=== PATIENT | male | born 1965 | race Caucasian/White ===

== ENCOUNTER 2017-04-09 11:58 | Inpatient (IN) ==
--- NOTE | 2017-04-09 12:27 | Emergency Department Note ---
Disposition Clinical Impression: Cerebrovascular accident Qualifiers: CVA mechanism: unspecified Qualified Code(s): I63.9 - Cerebral infarction, unspecified Disposition: Admitted As Inpatient Condition: Fair Referrals: Alonso Duke MD [Primary Care Provider] - Forms: ED Satisfaction Letter Time of Disposition: 15:21 Neuro HPI - General Chief Complaint: ED Neuro Symptoms/Deficit Stated Complaint: Right leg weakness Time Seen by Provider: 04/09/17 12:20 Source: patient, family Mode of arrival: wheelchair Limitations: no limitations Nursing Notes Reviewed: Yes Vital Signs Reviewed: Yes - History of Present Illness HPI Narrative: 52-year-old male who states he developed right leg weakness says he just could not use it like he wanted to last p.m. at about 12:30. He denies other symptoms. Onset of Symptoms Date: 04/09/17 Onset of Symptoms Time: 00:30 Symptom Onset Unknown: No Timing confirmed by: spouse Location: left leg History of same: No Severity: mild, moderate Quality: weakness Symptoms Improving: No Improves with: none Worsens with: none Context: sudden onset On Anticoagulants: No Associated symptoms: Reports: denies other symptoms Treatments Prior to Arrival: none - Related Data Home Medications: Home Medications Medication Instructions Recorded Confirmed Carvedilol [Coreg] 6.25 mg PO BID 04/09/17 04/09/17 Glimepiride [Amaryl] 4 mg PO DAILY 04/09/17 04/09/17 Metformin HCl [Glucophage] 1,000 mg PO BID 04/09/17 04/09/17 Previous Rx's Medication Instructions Recorded Furosemide [Lasix] 20 mg PO DAILY #7 tablet 11/14/15 Lisinopril [Zestril] 10 mg PO DAILY #30 tablet 11/14/15 Aspirin Enteric Coated [Aspirin EC] 81 mg PO DAILY #60 tablet. 01/30/16 Atorvastatin [Lipitor] 40 mg PO HS #30 tablet 01/30/16 Allergies/Adverse Reactions: Allergies Allergy/AdvReac Type Severity Reaction Status Date / Time No Known Allergies Allergy Verified 04/09/17 12:03 All systems ED: reviewed and negative except as stated. Constitutional: Denies: fever, chills, weakness, weight change Eyes: Denies: eye pain, eye discharge, vision change ENT ED: Denies: ear pain, throat pain, dental pain, hearing loss, epistaxis, congestion, dysphagia Cardiovascular: Denies: chest pain, palpitations, dyspnea on exertion, edema, syncope Respiratory: Denies: cough, dyspnea, wheezes, hemoptysis, stridor Gastrointestinal: Denies: abdominal pain, nausea, vomiting, diarrhea, constipation, hematemesis, melena, hematochezia Genitourinary: Denies: urgency, dysuria, frequency, hematuria Musculoskeletal: Denies: back pain, neck pain, arthralgia, myalgia Integumentary: Denies: rash, abrasion, lesions Neurological: Reports: weakness. Denies: headache, numbness, paresthesias, confusion, abnormal gait, vertigo Psychiatric: Denies: anxiety, depression, suicidal thoughts, homicidal thoughts , auditory hallucinations, visual hallucinations Endocrine: Denies: fatigue Hematological/Lymphatic: Denies: easy bleeding, easy bruising Allergic/Immunologic: Denies: facial swelling, urticaria Past Medical History - Past Medical History Medical history: Reports: cardiomyopathy, CHF, coronary artery disease, diabetes , hyperlipidemia, hypertension, venous stasis Surgical history: Reports: orthopedic, other (Right knee arthroscopy.) Psychiatric history: Reports: no psych history - Social History Smoking Status: Former smoker Smokeless Tobacco Status: No Alcohol use: Reports: none Drug use: Reports: none Physical Exam - General Limitations: no limitations General appearance: alert, in no apparent distress - Head Head exam: atraumatic, normocephalic, normal inspection - Eye Eye exam: Present: normal appearance, PERRL, EOMI - ENT ENT exam: normal exam, normal oropharynx, mucous membranes moist - Neck Neck exam: Present: normal inspection, full ROM, trachea midline - Chest Chest inspection: Present: normal inspection, symmetric chest wall rise - Respiratory Respiratory exam: Present: normal lung sounds bilaterally - Cardiovascular Cardiovascular exam: Present: regular rate, normal rhythm, normal heart sounds - Abdominal Exam Abdominal exam: Present: soft, Non-Tender. Absent: tenderness, distention, guarding, rebound, rigidity - Extremities Exam Extremities exam: Present: normal inspection, full ROM. Absent: tenderness, pedal edema - Expanded Lower Extremity Exam Neurovascular/Tendon exam: Absent: motor deficit, sensory deficit, tendon deficit Gait: not tested/not observed - Back Exam Back exam: Present: normal inspection, full ROM. Absent: tenderness - Neurological Exam Neurological exam: Present: alert, oriented X3, motor sensory deficit (Some weakness of the right leg based on push pull however he has no drift. He does have some incoordination of the right leg.) Course - Reevaluation(s) Reevaluation #1: 52-year-old male who developed right leg weakness of about 12 hours prior to admission. On exam. NIH score is 1. He is out of the time frame for TPA. Consultation with neurology who did come down and evaluate the patient patient will be admitted for further evaluation. Time: 15:20 - Consultations Consultation #1: Consult with Dr. Casiano and supination consult admit to the hospitalist. Time: 13:15 Consultation #2: Discussed with , admit. Time: 15:21 Vital Signs Temperature 98.8 F 04/09/17 12:00 Pulse Rate 86 04/09/17 12:00 Respiratory Rate 16 04/09/17 12:00 Blood Pressure 165/98 04/09/17 12:00 O2 Sat by Pulse Oximetry 98 04/09/17 12:00 Temperature 98.8 F 04/09/17 12:00 Pulse Rate 79 04/09/17 13:41 Respiratory Rate 18 04/09/17 13:41 Blood Pressure 141/93 04/09/17 13:41 O2 Sat by Pulse Oximetry 99 04/09/17 13:41 Oxygen Delivery Oxygen Delivery Room Air Neuro Symptoms/Deficit - Lab Data Result diagrams: 04/09/17 13:04 04/09/17 13:04 Lab Results 04/09/17 04/09/17 04/09/17 Range/Units 12:29 13:04 13:04 WBC 8.6 (4.3-11.1) K/mcL RBC 4.53 (4.19-5.50) M/mcL Hgb 13.6 (12.9-16.9) g/dL Hct 40.5 (37.5-50.1) % MCV 89.4 (83.0-100.0) fL MCH 30.0 (28.0-33.3) pg MCHC 33.6 (31.6-35.5) g/dL RDW 13.9 (11.5-14.5) % Plt Count 213 (140-400) K/mcL MPV 10.9 (9.4-12.4) fL Immature Gran % 0.2 (0-4) % Seg Neutrophils % 71.2 % Lymphocytes % 20.8 % Monocytes % 6.2 % Eosinophils % 1.1 % Basophils % 0.5 % Neutrophils # 6.1 (1.6-8.9) K/mcL Lymphocytes # 1.8 (0.6-4.6) K/mcL Monocytes # 0.5 (0.0-1.3) K/mcL Eosinophils # 0.1 (0.0-0.6) K/mcL Basophils # 0.0 (0.0-0.2) K/mcL PT 10.6 (9.4-12.1) Seconds INR 1.0 APTT 27.1 (26.0-36.0) Seconds Sodium (136-145) mEq/L Potassium (3.5-5.1) mEq/L Chloride (98-107) mEq/L Carbon Dioxide (23-29) mEq/L BUN (6-20) mg/dL Creatinine (0.70-1.30) mg/dL Est GFR ( Amer) (> 60) Est GFR (Non-Af Amer) (> 60) BUN/Creatinine Ratio (6-26) Glucose (70-105) mg/dL POC Glucose 278 H (58-89) Calculated Osmolality (280-300) Calcium (8.6-10.3) mg/dL Troponin I (< 0.04) ng/mL 04/09/17 04/09/17 Range/Units 13:04 13:04 WBC (4.3-11.1) K/mcL RBC (4.19-5.50) M/mcL Hgb (12.9-16.9) g/dL Hct (37.5-50.1) % MCV (83.0-100.0) fL MCH (28.0-33.3) pg MCHC (31.6-35.5) g/dL RDW (11.5-14.5) % Plt Count (140-400) K/mcL MPV (9.4-12.4) fL Immature Gran % (0-4) % Seg Neutrophils % % Lymphocytes % % Monocytes % % Eosinophils % % Basophils % % Neutrophils # (1.6-8.9) K/mcL Lymphocytes # (0.6-4.6) K/mcL Monocytes # (0.0-1.3) K/mcL Eosinophils # (0.0-0.6) K/mcL Basophils # (0.0-0.2) K/mcL PT (9.4-12.1) Seconds INR APTT (26.0-36.0) Seconds Sodium 135 L (136-145) mEq/L Potassium 4.1 (3.5-5.1) mEq/L Chloride 105 (98-107) mEq/L Carbon Dioxide 24 (23-29) mEq/L BUN 14 (6-20) mg/dL Creatinine 1.11 (0.70-1.30) mg/dL Est GFR ( Amer) > 60 (> 60) Est GFR (Non-Af Amer) > 60 (> 60) BUN/Creatinine Ratio 13 (6-26) Glucose 284 H (70-105) mg/dL POC Glucose (58-89) Calculated Osmolality 291 (280-300) Calcium 9.5 (8.6-10.3) mg/dL Troponin I < 0.03 (< 0.04) ng/mL - EKG Data EKG attestation: Yes I reviewed and interpreted this EKG. EKG shows normal: sinus rhythm Rate: normal Rhythm: NSR [place]/QRS: normal Interpretation: nonspecific ST-T wave changes NIH Stroke Scale - Level of Consciousness LOC: Alert - LOC Questions LOC Questions: Answers both correctly - LOC Commands LOC Commands: Performs both correctly - Best Gaze Best Gaze: Normal - Visual Visual: No visual loss - Facial Palsy Facial Palsy: Normal - Motor Arms Motor Arm-Left: No drift for 10 seconds Motor Arm-Right: No drift for 10 seconds - Motor Legs Motor Leg-Left: No drift for 5 seconds Motor Leg-Right: No drift for 5 seconds - Limb Ataxia Limb Ataxia: Present in ONE limb - Sensory Sensory: Normal - Best Language Best Language: No aphasia - Dysarthria Dysarthria: Normal - Extinction and Inattention Extinction and Inattention: Normal - NIHSS Total Score NIHSS Total Score: 1 TPA Checklist - Eligibilty for IV tPA 1. LKW equal to or less than 4.5 hours be before treatment: No - LKW: 3-4.5 hrs Add. Warnings/Precautions Patient/family understanding: The patient/family members have been counseled and understood the risk, benefit , and alternatives of treatment.
[2017-04-09 13:18] LABS: Basophils % 0.5 %; Eosinophils # 0.1 K/mcL (0.0-0.6); Eosinophils % 1.1 %; Hematocrit 40.5 % (37.5-50.1); Hemoglobin 13.6 g/dL (12.9-16.9); Immature Granulocytes % 0.2 % (0-4); Lymphocytes # 1.8 K/mcL (0.6-4.6); Lymphocytes % 20.8 %; Mean Corpuscular HGB Conc 33.6 g/dL (31.6-35.5); Mean Corpuscular Volume 89.4 fL (83.0-100.0); Mean Platelet Volume 10.9 fL (9.4-12.4); Monocytes # 0.5 K/mcL (0.0-1.3); Monocytes % 6.2 %; Neutrophils # 6.1 K/mcL (1.6-8.9); Platelet Count 213 K/mcL (140-400); Red Blood Count 4.53 M/mcL (4.19-5.50); Red Cell Distribution Width 13.9 % (11.5-14.5); Segmented Neutrophils % 71.2 %
[2017-04-09 13:23] LABS: Prothrombin Time 10.6 Seconds (9.4-12.1)
[2017-04-09 13:26] LABS: Activated Partial Thrombo Time 27.1 Seconds (26.0-36.0)
[2017-04-09 13:38] LABS: BUN/Creatinine Ratio 13 (6-26); Blood Urea Nitrogen 14 mg/dL (6-20); Calcium 9.5 mg/dL (8.6-10.3); Carbon Dioxide 24 mEq/L (23-29); Chloride 105 mEq/L (98-107); Glucose 284 mg/dL (70-105); Osmolality,Calculated 291 (280-300); Potassium 4.1 mEq/L (3.5-5.1); Sodium 135 mEq/L (136-145); eGFR For African Americans > 60 (> 60); eGFR For Non-African Americans > 60 (> 60)
--- NOTE | 2017-04-09 13:51 | Neurology - Consult Note ---
<AustinVinnie thomson - Last Filed: 04/09/17 15:48> Date of Encounter: 04/09/17 Time of Encounter: 13:50 Assessment and Plan (1) Weakness of right lower extremity Current Visit: Yes Status: Acute Mr. Ortiz 52-year-old male known history of CAD, CABG, type 2 diabetes, previous smoker quit 2 years ago admitted with right lower extremity weakness. His symptoms appear to be early motor with sensory intact. He has some mild weakness on the right lower extremity without ataxia. He has no known history of arrhythmia and EKG is in normal sinus rhythm. Findings concerning for potential left hemisphere cerebrovascular accident. Head CT was without acute abnormalities but this does not completely rule out ischemic stroke. - Given his risk factors of CAD, ischemic cardiomyopathy, prior smoker and obesity we are to continue to consider both thrombolic and embolic causes. Plan: - MRI of the brain - Continue informatics spec - Patient was on aspirin will discontinue and start Plavix - Physical therapy/occupational therapy - Permissive hypertension for 24 hours - Depending on findings on MRI of the brain may consider carotid Doppler. History of Present Illness Chief complaint: weakness HPI: Mr. Ortiz is a 52 year old male significant past medical history CAD, diabetes2 , former smoker, CABG 3 vessels in 2016, ischemic cardiomyopathy, systolic heart failure with an LVEF of 40-45% presented to the emergency department with right lower extremity weakness. He states that last evening he was sitting at his desk doing computer work when he tried moving his right leg and had difficulty due to muscle weakness. He did not think much of it at that time as he thought it was a sleep leg and when he stood up he had some difficulty standing but braced himself on his desk until he got to bed and went to sleep. He denies at that time having any other noticeable signs denies any headaches, blurry vision, dizziness, lightheadedness, difficulty with memory or thought, difficulty with speech, chest pain, palpitations, shortness of breath, abdominal pains, nausea vomiting diarrhea constipation, any numbness or tingling , loss of sensation or difficulty with placements of her time. When he woke up in the morning he had difficulty standing similar to the night prior but no new symptoms. He went to climb the stairs to take a shower and noticed that he had difficulty raising his right leg. He states that his brain was telling his leg to left but his leg was not following the action. He had noticed some minor gait disturbance with lifting his right foot and felt like he was lagging. All these symptoms are new to him he had never had symptoms like this prior. Denies any history of stroke, cardiac arrhythmia or history of clotting. He states that his father had a stroke but developed any dysphagia over the age of 50. He denies any recent medication changes, any long periods of sitting or trauma. He has been able to eat and drink without difficulty. Past Med Surg Social Fam HX - Past Medical History Medical history: cardiomyopathy, CHF, coronary artery disease, diabetes, hyperlipidemia, hypertension, venous stasis Psychiatric history: no psych history - Past Surgical History Surgical History: orthopedic, other (Right knee arthroscopy.) - Social History Smoking Status: Former smoker Smokeless Tobacco Status: No Alcohol use: none Drug use: none - Family History Father Hx Family Neurologic Disorders: Yes (Stroke over the age of 50) Medications and Allergies Furosemide [Lasix] 20 mg PO DAILY #7 tablet 11/14/15 [Rx] Lisinopril [Zestril] 10 mg PO DAILY #30 tablet 11/14/15 [Rx] Aspirin Enteric Coated [Aspirin EC] 81 mg PO DAILY #60 tablet.dr 01/30/16 [Rx] Atorvastatin [Lipitor] 40 mg PO HS #30 tablet 01/30/16 [Rx] Carvedilol [Coreg] 6.25 mg PO BID 04/09/17 [History] Glimepiride [Amaryl] 4 mg PO DAILY 04/09/17 [History] Metformin HCl [Glucophage] 1,000 mg PO BID 04/09/17 [History] 3 Allergy/AdvReac Type Severity Reaction Status Date / Time No Known Allergies Allergy Verified 04/09/17 12:03 All Systems: A 10-system review of systems was performed and is negative for pertinent findings except as documented above in the HPI. - Constitutional Constitutional ROS IM: as per HPI, weakness (Right leg), no chills, no fatigue, no fever(s), no headache(s) - Nose, Mouth, Throat Nose, mouth and throat: no dizziness, no headache(s), no neck pain - Cardiovascular Cardiovascular ROS IM: no chest pain, no chest pain at rest, no diaphoresis, no dyspnea on exertion, no irregular heart rhythm, no leg edema, no lightheadedness , no palpitations, no rapid heart rate, no slow heart rate, no syncope - Respiratory Respiratory IM: no cough, no dyspnea - Gastrointestinal Gastrointestinal: no abdominal pain, no bloating, no change in bowel habits, no constipation, no diarrhea, no hematemesis, no hematochezia, no melena, no nausea , no vomiting - Genitourinary Genitourinary ROS: no difficulty voiding - Musculoskeletal Musculoskeletal ROS IM: muscle weakness, no muscle cramps, no stiffness, no tingling - Integumentary Integumentary IM: no rash - Neurological Neurological ROS: weakness, no disequilibrium, no dizziness, no headache(s), no loss of vision, no memory loss, no numbness, no paresthesias, no sensory deficit , no syncope, no tingling, no tremor(s) - Hematologic/Lymphatic Hematologic/Lymphatic pediatric: no easy bleeding Physical Examination - Vital Signs Vital Signs: Initial Vital Signs Temp Pulse Resp BP Pulse Ox 98.8 F 86 16 165/98 98 04/09/17 12:00 04/09/17 12:00 04/09/17 12:00 04/09/17 12:04/09/17 12:00 - Constitutional General appearance: comfortable - Neurologic Detailed motor examination: full strength in all major muscle groups Motor examination - right side: 4/5: hip flexors, quadriceps, toe extension (EHL ), 5/5: deltoids, biceps, triceps, wrist flexion, wrist extension, mortuary beautician, tibialis Anterior, plantarflexion Motor examination - left side: 5/5: deltoids, biceps, triceps, wrist flexion, wrist extension, hip flexors, mortuary beautician, quadriceps, tibialis Anterior, toe extension (EHL), plantarflexion Detailed sensory examination: intact, light touch, pain Reflexes: Biceps: 2+, Triceps: 2+, Brachioradialis: 2+, Patella: 2+, Achilles: 2 + Mental Status Examination: awake, alert, oriented to person, oriented to place, oriented to time, follows commands appropriately, answers questions appropriately, no agnosia, no aphasia, no aproxia Cranial nerve examination: PERRL, EOMI, visual hays intact, corneal reflexes brisk symmetrically, sensory to face intact, mastication intact, no facial asymmetry is present, no dysarthria, hearing is intact symmetrically, soft palate elevates bilaterally upon phonation, gag reflex intact, flexes SCM and trapezius muscles symmetrically with full power, tongue protrudes midline, no atrophy or facial fasiculations present Cerebellar examination: no dysmetria, performs finger to nose and heel to farris symmetrically without ataxia, no gait ataxia, no truncal ataxia, no difficulty with rapid alternating movements Results - Laboratory Findings CBC and BMP: 04/09/17 13:04 04/09/17 13:04 Abnormal lab findings: Abnormal lab results Sodium 135 mEq/L (136-145) L 04/09/17 13:04 Glucose 284 mg/dL (70-105) H 04/09/17 13:04 POC Glucose 278 (58-89) H 04/09/17 12:29 Consult Discharge Plan - Plan Referrals: Alonso Duke MD [Primary Care Provider] - <Alexander Casiano - Last Filed: 04/09/17 16:16> Date of Encounter: 04/09/17 Time of Encounter: 16:10 Assessment and Plan (1) Weakness of right lower extremity Current Visit: Yes Status: Acute As above. Given this patient's risk factors it seems likely dealing with a pure motor lacunar infarct. He denies any history of back or leg pain which diminishes the likelihood is of lumbar radiculopathy, or neuropathy. I agree with the above recommendations. Statin therapy will also be indicated. Further recommendations will be made pending the MRI results. History of Present Illness HPI: The chart was reviewed, case was discussed with Dr. Grier. The patient was examined independently. I agree with Dr. Grier's accounts as stated above. All Systems: A 10-system review of systems was performed and is negative for pertinent findings except as documented above in the HPI. Review of Systems: 10 point review of systems is consistent with a history of present illness and is otherwise negative. Physical Examination - Vital Signs Vital Signs: Initial Vital Signs Temp Pulse Resp BP Pulse Ox 98.8 F 86 16 165/98 98 04/09/17 12:00 04/09/17 12:00 04/09/17 12:00 04/09/17 12:00 04/09/17 12:00 - Exam Exam: Patient was seen and examined independently. I agree with the examination completed by Dr. Heilig Results - Laboratory Findings CBC and BMP: 04/09/17 13:04 04/09/17 13:04 Abnormal lab findings: Abnormal lab results Sodium 135 mEq/L (136-145) L 04/09/17 13:04 Glucose 284 mg/dL (70-105) H 04/09/17 13:04 POC Glucose 278 (58-89) H 04/09/17 12:29
[2017-04-09] MEDS ORDERED: *HR* HYDROcodone/Acet 5/325 mg TABLET PO PRN (19:33)
[2017-04-09] MEDS ORDERED: Naloxone 0.4 MG/ML INJ IVP PRN (19:33)
[2017-04-09] MEDS ORDERED: Acetaminophen 325 MG TABLET PO PRN (19:33)
[2017-04-09] MEDS ORDERED: *HR* Dextrose 50 % in Water (Syg) 50 ML SYRINGE IVP PRN (19:38)
[2017-04-09] MEDS ORDERED: D5% in Water 1,000 ML IVC PRN (19:38)
[2017-04-09] MEDS ORDERED: Dextrose Gel 15 GM/37.5 ML TUBE PO PRN ×2 (19:38)
--- NOTE | 2017-04-09 19:57 | Internal Med History&Physical ---
<Vinnie Sewell - Last Filed: 04/09/17 22:22> Date of Encounter: 04/09/17 Time of Encounter: 18:00 Assessment and Plan (1) Weakness of right lower extremity Current visit: Yes Status: Acute Acute weakness of the right leg that began yesterday at 12:30 p.m. so pt. outside of TPA window for tx. Pt. denies previous occurrence. States leg became numb. Reports blurry vision, but unsure if his hyperglycemia at the time was responsible. Denies hx of TIAs/CVAs. Risk factors include DM, HTN, HLD, CAD, CHF , cardiomyopathy. On exam, pt. has mild weakness in RLE when compared to LLE, but no other focal deficits on exam noted. UE strengths bilateral. No facial droop or pronator drift present. No speech deficit or AMS. NIHSS modified scale. Timed neuro checks. Dysphagia screen w/pt. to be NPO until passed. Padding to bed rails. Neurology consulted and I appreciate the consult. Neurology recommendations to order MRI of brain without contrast to assess for infarct/bleeding, continue cardiac telemetry, discontinue aspirin and add Plavix 75 mg. shimon, PT/OT consults, hold patient's HTN medications to allow for permissive HTN for 24 hours. Bilateral carotid Dopplers ordered. Echocardiogram ordered. Falls/safety precautions, up with assist, bed rest w/ bedside commode with assist only. Pt. discussed w/Dr. Smith who agrees w/plan of care. Pt. is high risk for CVA event based on sx, hx; and risk factors of HTN , HLD, CAD, diabetes, former tobacco abuse, CABG 3, ischemic cardiomyopathy, and systolic CHF. Inpatient. (2) HTN (hypertension) Current visit: Yes Status: Chronic Hx of chronic HTN. Monitor pt. and VS. Hold pts. HTN medications per Neurology to allow for permissive HTN. Monitor pt. Qualifiers: Hypertension type: essential hypertension Qualified Code(s): I10 - Essential (primary) hypertension (3) CHF (congestive heart failure) Current visit: Yes Status: Chronic Hx of chronic CHF. Stable. Echocardiogram ordered. Qualifiers: Heart failure type: systolic Heart failure chronicity: chronic Qualified Code(s): I50.22 - Chronic systolic (congestive) heart failure (4) Diabetes Current visit: Yes Status: Chronic Hx of chronic diabetes controlled w/oral anti-hyperglycemic medications. Hold orals and administer low-dose correction insulin sliding scale and hypoglycemic protocol. BG checks ACHS. A1c in a.m. labs. Qualifiers: Diabetes mellitus type: type 2 Diabetes mellitus complication status: with unspecified complications Diabetes mellitus parts counterman insulin use: without parts counterman use Qualified Code(s): E11.8 - Type 2 diabetes mellitus with unspecified complications (5) HLD (hyperlipidemia) Current visit: Yes Status: Chronic Hx of chronic HLD. Lipid panel in a.m. labs. Continue pts. Lipitor. Qualifiers: Hyperlipidemia type: pure hypercholesterolemia Qualified Code(s): E78.00 - Pure hypercholesterolemia, unspecified; E78.0 - Pure hypercholesterolemia (6) CAD (coronary artery disease) Current visit: Yes Status: Chronic Hx of CAD. Continue Lipitor and aspirin. Add Plavix. Hold HTN medications to allow for permissive HTN tonight. Continuous telemetry. Qualifiers: Coronary Disease-Associated Artery/Lesion type: [place] artery [place] vs. transplanted heart: [place] heart Associated angina: without angina Qualified Code(s): I25.10 - Atherosclerotic heart disease of [place] coronary artery without angina pectoris (7) DVT prophylaxis Current visit: Yes Status: Acute Anti-embolic stockings on bilateral LEs until MRI results are available to r/o intracranial bleed. Internal Medicine - H&P: HPI Chief complaint: Right leg weakness Admitted From: Emergency Dept Plans for Post Hospital Care: Home History of present illness: Mr. Ortiz is a 52 year old male with medical history of cardiomyopathy, CHF, CAD , diabetes controlled with oral anti-hyperglycemics, HLD, HTN, and venous stasis reports from the ED with chief complaint of right leg weakness that developed yesterday at 12:30 PM w/difficulty in ambulating. Patient states symptoms came on gradually while he was seated and he did not experience any weakness in his upper right extremity or left upper lower extremities. Patient denied headache or changes in vision. Patient describes weakness with some numbness to extremity and denies previous occurrence. Patient also reports blurry vision but states this may be due to his hyperglycemia at the time. No aggravating or alleviating factors. Leg continued to be weak today. Patient denies recent illness, fever, chills, nausea, vomiting, headache, chest pain, shortness of breath, palpitations, abdominal pain, diarrhea, constipation, dizziness, lightheadedness, pre-syncope, or syncope. Past Med Surg Social Fam HX - Past Medical History Medical history: cardiomyopathy, CHF, coronary artery disease, diabetes, hyperlipidemia, hypertension, venous stasis Psychiatric history: no psych history - Past Surgical History Surgical History: coronary bypass (CABG), orthopedic, other (Right knee arthroscopy') - Social History Smoking Status: Former smoker Packs per day: Pipe, Reports quitting in 2016 Smokeless Tobacco Status: No Alcohol use: none Drug use: none Current living situation: Home, With Family Activity Level: Independent ambulation Recent Out of Country Travel Within the Last 8 Weeks: No Exposure or Possible Exposure to Illness During Travel: No - Family History Father Race: Family Member Ethnicity: Non- Living Status: Age at : 70 Cause of : CAD Hx Family Cardiac Disorders: Yes (CAD) Hx Family Endocrine Disorder: Yes (DM) Hx Family Neurologic Disorders: Yes (Stroke over the age of 50) Mother Name: Cora Age: 75 Race: Family Member Ethnicity: Non- Living Status: Still Living Hx Family Medical Disorders: No Brother Race: Family Member Ethnicity: Non- Living Status: Still Living Hx Family Musculoskeletal Disorders: Yes (Knee problems) Sister Race: Family Member Ethnicity: Non- Living Status: Still Living Hx Family Medical Disorders: No Internal Medicine - H&P: Meds Furosemide [Lasix] 20 mg PO DAILY #7 tablet 11/14/15 [Rx] Lisinopril [Zestril] 10 mg PO DAILY #30 tablet 11/14/15 [Rx] Aspirin Enteric Coated [Aspirin EC] 81 mg PO DAILY #60 tablet. 01/30/16 [Rx] Atorvastatin [Lipitor] 40 mg PO HS #30 tablet 01/30/16 [Rx] Carvedilol [Coreg] 6.25 mg PO BID 04/09/17 [History] Glimepiride [Amaryl] 4 mg PO DAILY 04/09/17 [History] Metformin HCl [Glucophage] 1,000 mg PO BID 04/09/17 [History] 3 Allergy/AdvReac Type Severity Reaction Status Date / Time No Known Allergies Allergy Verified 04/09/17 12:03 All Systems PM: A 10-system review of systems was performed and is negative for pertinent findings except as documented above in the HPI. - Constitutional Constitutional: as per HPI, weakness (Right leg), no chills, no fever(s), no night sweats - EENT Eyes: as per HPI, blurry vision, no change in vision, no discharge, no pain, no photophobia Ears: no ear discharge, no ear pain, no tinnitus Nose, mouth and throat: no dysphagia, no nasal discharge, no neck pain, no sore throat - Breasts Breasts: as per HPI - Cardiovascular Cardiovascular ROS IM: no chest pain, no diaphoresis, no dyspnea, no lightheadedness, no palpitations, no syncope - Respiratory Respiratory: no cough, no dyspnea, no wheezing, no excessive phlegm production - Gastrointestinal Gastrointestinal: no abdominal pain, no diarrhea, no hematemesis, no hematochezia, no melena, no nausea, no vomiting - Genitourinary Genitourinary ROS male: as per HPI - Musculoskeletal Musculoskeletal ROS IM: as per HPI, muscle weakness (Right leg), numbness ( Right leg), no tingling - Integumentary Integumentary IM: no rash, no unusual bruising - Neurological Neurological ROS: as per HPI, numbness (Right leg), weakness (Right leg) - Constitutional Vitals: Temp Pulse Resp BP Pulse Ox 98.1 F 84 16 159/82 94 04/09/17 18:43 04/09/17 18:43 04/09/17 18:43 04/09/17 18:43 04/09/17 18:43 General appearance: Present: cooperative, A&O X 3, pleasant, no acute distress, obese, answers questions appropriately - Head Head exam: Present: atraumatic, normocephalic - Eye Eye exam: Present: PERRL, conjuntiva pink, sclera anicteric Pupils: Present: PERRL - ENT ENT exam: Present: normal exam - Neck Neck exam general surgery: Present: supple, trachea midline. Absent: lymphadenopathy - Respiratory Respiratory exam: Present: CTAB. Absent: accessory muscle use, rales, rhonchi, wheezes - Cardiovascular Cardiovascular exam: Present: irregular rhythm, +S1, +S2. Absent: diastolic murmur, gallop, rubs, systolic murmur - GI/Abdominal GI/Abdominal exam: Present: normal bowel sounds, soft, no peritoneal signs. Absent: distended, tenderness - Rectal Rectal exam: Present: deferred - Additional comments: exam deferred. - Extremities Exam Extremities exam: Present: pedal edema, warm, radial pulses palpable and symmetrical. Absent: calf tenderness, cyanotic - Back Exam Back exam: Present: normal inspection - Neurological Exam Neurological exam: Present: alert, CN II-XII intact, oriented X3, no focal deficits. Absent: pronater drift, facial droop, speech deficit Additional comments: Mild weakness in right leg when compared to left leg strength. Pt. able to push/ pull/raise w/foot and leg on exam with minor weakness noted. - Psychiatric Psychiatric exam: Present: normal affect, normal mood - Skin Skin exam: Present: dry, intact Internal Med - H&P Results - Labs CBC & Chem 7: 04/09/17 13:04 04/09/17 13:04 - EKG Data EKG shows normal: sinus rhythm - EKG Data Prior EKG available for review: yes EKG comments: 04/09/17 20:48 EKG dated 01/26/16 shows sinus tachycardia with short SC interval, borderline left axis deviation, moderate voltage criteria for LVH (consider normal variant) , and nonspecific T-wave abnormality. EKG dated 04/09/17 shows sinus rhythm with sinus arrhythmia, nonspecific T-wave abnormality, and borderline ECG. - Diagnostic Studies CT scan - head Additional comments: Impressions Head CT 04/09/17 12:23 IMPRESSION: No acute intracranial abnormality. D/ / Dada Conley MD / Dada Conley MD Interpreting Provider: Dada Conley MD <Bhavya Smith - Last Filed: 04/10/17 04:50> Date of Encounter: 04/10/17 Internal Medicine - H&P: HPI History of present illness: Mr. Oritz is a 52 year old male All Systems PM: A 10-system review of systems was performed and is negative for pertinent findings except as documented above in the HPI. - Constitutional Vitals: Temp Pulse Resp BP Pulse Ox 97.8 F 87 16 124/79 96 04/10/17 03:58 04/10/17 03:58 04/10/17 03:58 04/10/17 04:27 04/10/17 03:58 Internal Med - H&P Results - Labs CBC & Chem 7: 04/10/17 03:03 04/10/17 03:03 Labs: Short CBC 04/10/17 Range/Units 03:03 WBC 10.0 (4.3-11.1) K/mcL Hgb 14.0 (12.9-16.9) g/dL Hct 41.6 (37.5-50.1) % Plt Count 232 (140-400) K/mcL Neutrophils # 5.4 (1.6-8.9) K/mcL BMP 04/10/17 03:03 Sodium 139 Potassium 3.5 Chloride 108 H Carbon Dioxide 24 BUN 13 Creatinine 1.04 Glucose 153 H Calcium 9.3 Cardiac Enzymes 04/10/17 Range/Units 03:03 Troponin I < 0.03 (< 0.04) ng/mL Liver Function 04/10/17 Range/Units 03:03 Total Bilirubin 0.3 (0.3-1.0) mg/dL AST 18 (13-39) Units/L ALT 26 (7-52) Units/L Alkaline Phosphatase 62 (34-104) Units/L Albumin 4.0 (3.5-5.7) g/dL - Attending Attestation I have seen and examined this pt independently. I have discussed with DOWEL INSPECTOR Mr Bill regarding the management plan. Agree with the documentation.
[2017-04-09] MEDS ORDERED: Insulin LISPRO 300 UNITS/3 ML VIAL SQ SCH (21:00)
[2017-04-10 04:19] LABS: Basophils % 0.4 %; Eosinophils # 0.2 K/mcL (0.0-0.6); Eosinophils % 1.5 %; Hematocrit 41.6 % (37.5-50.1); Immature Granulocytes % 0.2 % (0-4); Lymphocytes # 3.4 K/mcL (0.6-4.6); Mean Corpuscular HGB Conc 33.7 g/dL (31.6-35.5); Mean Corpuscular Hemoglobin 30.2 pg (28.0-33.3); Mean Corpuscular Volume 89.7 fL (83.0-100.0); Mean Platelet Volume 11.2 fL (9.4-12.4); Monocytes # 0.9 K/mcL (0.0-1.3); Monocytes % 9.3 %; Neutrophils # 5.4 K/mcL (1.6-8.9); Platelet Count 232 K/mcL (140-400); Red Blood Count 4.64 M/mcL (4.19-5.50); Red Cell Distribution Width 13.8 % (11.5-14.5); Segmented Neutrophils % 54.6 %
[2017-04-10 04:32] LABS: Hemoglobin A1C 8.5 %
[2017-04-10 04:45] LABS: Alanine Aminotransferase 26 Units/L (7-52); Albumin/Globulin Ratio 1.6 (1.1-2.2); Alkaline Phosphatase 62 Units/L (34-104); Aspartate Amino Transferase 18 Units/L (13-39); BUN/Creatinine Ratio 13 (6-26); Bilirubin,Total 0.3 mg/dL (0.3-1.0); Blood Urea Nitrogen 13 mg/dL (6-20); Calcium 9.3 mg/dL (8.6-10.3); Carbon Dioxide 24 mEq/L (23-29); Chloride 108 mEq/L (98-107); Chol/HDL Ratio 3.6 (0-4.9); Cholesterol 116 mg/dL (< 200); Globulin 2.5 g/dL (2.4-3.5); Glucose 153 mg/dL (70-105); HDL Cholesterol 32 mg/dL (40-59); LDL Cholesterol,Calculated 57 mg/dL (0-99); Magnesium 1.9 mg/dL (1.6-2.6); Osmolality,Calculated 291 (280-300); Potassium 3.5 mEq/L (3.5-5.1); Sodium 139 mEq/L (136-145); Total Protein 6.5 g/dL (6.4-8.9); Triglycerides 133 mg/dL (< 150); eGFR For African Americans > 60 (> 60); eGFR For Non-African Americans > 60 (> 60)
[2017-04-10] MEDS: Insulin LISPRO 300 UNITS/3 ML VIAL SQ SCH ×2 (08:14→12:33)
--- NOTE | 2017-04-10 08:19 | Neurology Progress Note ---
Date of Encounter: 04/10/17 Time of Encounter: 08:17 Assessment and Plan (1) Weakness of right lower extremity Current Visit: Yes Status: Acute I am concerned about the possibility of a L4-L5 radiculopathy here versus transverse myelitis. He does have some right low back pain today although he still denies any significant sensory findings. He denies any sphincter abnormalities as well. I am not able to identify a spinal level. My plan is to obtain an MRI of the thoracic as well as lumbar spine. This is negative then I would anticipate CT of the pelvis and perhaps lumbar puncture. Subjective Interval history: The chart was reviewed, patient was seen and examined. I did review the brain MRI which did not reveal evidence of a cerebral for infarct. There is also no evidence of an offending lesion explaining his right leg weakness. He denies paresthesias in the perineum, he does admit to some right low back pain today. He denies any sphincter abnormalities. Denies paresthesias of either leg. Otherwise he had an uneventful night. Objective - Constitutional Vitals: Temp Pulse Resp BP Pulse Ox 97.7 F 80 16 151/94 96 04/10/17 07:50 04/10/17 07:50 04/10/17 07:50 04/10/17 07:50 04/10/17 07:50 - Neurological Exam Motor Examination: Present: full strength in all major muscle groups Motor examination - right side: 3/5: tibialis Anterior, toe extension (EHL), 4/5 : hip flexors, quadriceps, plantarflexion, 5/5: deltoids, biceps, triceps, dispatcher ship pilot Motor examination - left side: 5/5: deltoids, biceps, triceps, wrist flexion, wrist extension, hip flexors, dispatcher ship pilot, quadriceps, tibialis Anterior, toe extension (EHL), plantarflexion Sensation intact: Present: intact, light touch, pain, other (No spinal sensory level is present.) Reflexes: Patella: 2+ (2+/4 symmetrically) Mental Status Examination: Present: awake, alert, oriented to person, oriented to place, oriented to time, follows commands appropriately, answers questions appropriately, no agnosia, no aphasia, no aproxia Cranial nerve examination: Present: PERRL, EOMI, visual hays intact, corneal reflexes brisk symmetrically, sensory to face intact, mastication intact, no facial asymmetry is present, no dysarthria, hearing is intact symmetrically, soft palate elevates bilaterally upon phonation, gag reflex intact, flexes SCM and trapezius muscles symmetrically with full power, tongue protrudes midline, no atrophy or facial fasiculations present Cerebellar examination: Present: no dysmetria, performs finger to nose and heel to farris symmetrically without ataxia, no gait ataxia, no truncal ataxia, no difficulty with rapid alternating movements Results - Laboratory Findings CBC and BMP: 04/10/17 03:03 04/10/17 03:03 Abnormal lab findings: Abnormal lab results Chloride 108 mEq/L (98-107) H 04/10/17 03:03 Glucose 153 mg/dL (70-105) H 04/10/17 03:03 POC Glucose 204 (58-89) H 04/09/17 21:21 Hemoglobin A1c 8.5 % (-5.6) H 04/10/17 03:03 HDL Cholesterol 32 mg/dL (40-59) L 04/10/17 03:03 Consult Discharge Plan - Plan Referrals: Alonso Duke MD [Primary Care Provider] -
[2017-04-10] MEDS ORDERED: Aspirin Enteric Coated 81 MG Tablet PO SCH (09:00)
[2017-04-10] MEDS ORDERED: Furosemide 20 MG TABLET PO SCH (09:00)
--- NOTE | 2017-04-10 10:11 | Electrocardiograph Report ---
[facility] Test Date: 2017-04-09 Pat Name: Ambrocio Ortiz Department: 102 Room: 3B49 Gender: M Car Groomer: Am : 1965 Requested By: Johnie Reardon Order Number: [id number] Reading MD: Vinnie Breaux DO Measurements Intervals [place] Rate: 77 P: 46 FL: 153 QRS: -18 QRSD: 94 T: 60 QT: 271 QTc: 303 Interpretive Statements SINUS RHYTHM WITH SINUS ARRHYTHMIA NONSPECIFIC T-WAVE ABNORMALITY WARNING: DATA QUALITY MAY AFFECT INTERPRETATION Electronically Signed On 04-10-2017 10:09:42 EST by Vinnie Breaux DO
[2017-04-10 11:38] VITALS: BP 135/86
--- NOTE | 2017-04-10 12:53 | Discharge Summary ---
Orders not resulted at time of discharge: Pending orders 04/10/17 09:48 Consult to Neurology [CONS] Routine Date of Encounter: 04/10/17 Time of Encounter: 12:50 - Discharge Diagnosis (1) Weakness of right lower extremity Priority: Primary Status: Acute Comments: Patient expressed acute weakness of the right leg that began 04/09/17 at 12:30 PM. He states the leg became numb. No history of TIAs or CVAs. Risk factors include diabetes hypertension hyperlipidemia CAD and CHF as well as cardiomyopathy. On exam the patient had weakness in the right lower extremity when compared to the left but no other focal deficits on exam. Neurology service was consulted CT of the head was negative MRI had no acute changes. An MRI of thoracic and lumbar spine was obtained and revealed no acute thoracic spine abnormality but mild multilevel degenerative disease in the middle lower thoracic spine. A shallow 2 mm disc bulge at T7-T8 without significant spinal cord or neural foraminal stenosis was noted. Lumbar MRI revealed no acute lumbar spine abnormality with mild degenerative spondylosis at L3-L4 and L4-L5. Moderate left L3-L4 and moderate L4-L5 normal for minimal stenosis. Mild right L3-L4 and right L4-L5 normal for minimal stenosis. The patient will follow-up with orthopedics spinal specialist. The appointment has been made. The patient's symptoms have totally resolved and he states he is even able to walk now without any difficulty. Carotid duplex Doppler showed minimal plaquing bilaterally Echocardiogram was reviewed (2) CAD (coronary artery disease) Priority: Secondary Status: Chronic Comments: History of CAD. Continue Lipitor and aspirin. Qualifiers: Coronary Disease-Associated Artery/Lesion type: [place] artery [place] vs. transplanted heart: [place] heart Associated angina: without angina Qualified Code(s): I25.10 - Atherosclerotic heart disease of [place] coronary artery without angina pectoris (3) CHF (congestive heart failure) Priority: Secondary Status: Chronic Comments: Stable CHF. Echocardiogram was obtained and reviewed echo report LVEF of 60% Normal LV chamber size and function Atypical septal motion consistent with postoperative status Mild left ventricular diastolic dysfunction Qualifiers: Heart failure type: combined systolic and diastolic Heart failure chronicity: chronic Qualified Code(s): I50.42 - Chronic combined systolic ( congestive) and diastolic (congestive) heart failure (4) Diabetes Priority: Secondary Status: Chronic Comments: History of chronic diabetes controlled with oral hyperglycemic agents. Resume home medications Qualifiers: Diabetes mellitus type: type 2 Diabetes mellitus complication status: with unspecified complications Diabetes mellitus mcfp insulin use: without wood barrel reconditioner use Qualified Code(s): E11.8 - Type 2 diabetes mellitus with unspecified complications (5) HLD (hyperlipidemia) Priority: Secondary Status: Chronic Comments: Continue Lipitor Reviewed lipid panel cholesterol 116 triglycerides 133 LDL cholesterol 57 HDL 32 Qualifiers: Hyperlipidemia type: pure hypercholesterolemia Qualified Code(s): E78.00 - Pure hypercholesterolemia, unspecified; E78.0 - Pure hypercholesterolemia (6) HTN (hypertension) Priority: Secondary Status: Chronic Comments: Blood pressure stable resume her medications on discharge Qualifiers: Hypertension type: essential hypertension Qualified Code(s): I10 - Essential (primary) hypertension Hospital course: Mr. Ortiz is a 52 year old male who was admitted with weakness of the right lower extremity. He had experienced some numbness at home as well. CT of the head and MRI of the brain thoracic and lumbar spine were obtained. Neuro consult appreciated Patient will follow-up with the orthopedic spinal specialist as an outpatient. His symptoms have resolved and he was anxious for discharge. Please see details in the assessment and plan. Discharge discussed with: patient, family, nurse, industry consultant - Time Spent with Patient Total time spent providing and/or coordinating discharge services: Less than 30 minutes - Discharge Medications Home Medications: Furosemide [Lasix] 20 mg PO DAILY #7 tablet 11/14/15 [Rx] Lisinopril [Zestril] 10 mg PO DAILY #30 tablet 11/14/15 [Rx] Aspirin Enteric Coated [Aspirin EC] 81 mg PO DAILY #60 tablet. 01/30/16 [Rx] Atorvastatin [Lipitor] 40 mg PO HS #30 tablet 01/30/16 [Rx] Carvedilol [Coreg] 6.25 mg PO BID 04/09/17 [History] Glimepiride [Amaryl] 4 mg PO DAILY 04/09/17 [History] Metformin HCl [Glucophage] 1,000 mg PO BID 04/09/17 [History] Allergies/Adverse Reactions: 3 Allergy/AdvReac Type Severity Reaction Status Date / Time No Known Allergies Allergy Verified 04/09/17 12:03 Date of admission: 04/09/17 21:49 Primary care physician: Alonso Duke MD Consults: 04/10/17 09:48 Consult to Neurology [CONS] Routine Consulting Provider: Neurology [facility] Reason for Consult: right Time Notified: 09:50 Call Completed: Yes Discharging clinician: Joy Guo Anticipated date of discharge: 04/10/17 - Constitutional Vitals: Temp Pulse Resp BP Pulse Ox 97.7 F 84 16 135/86 95 04/10/17 11:35 04/10/17 11:35 04/10/17 11:35 04/10/17 11:35 04/10/17 11:35 General appearance: Present: cooperative, A&O X 3, pleasant, obese, answers questions appropriately - Head Head exam: Present: atraumatic, normocephalic - Eye Eye exam: Present: PERRL, conjuntiva pink, sclera anicteric Pupils: Present: PERRL - Neck Neck exam general surgery: Present: supple, trachea midline. Absent: lymphadenopathy - Respiratory Respiratory exam: Present: CTAB. Absent: accessory muscle use, rales, rhonchi, wheezes - Cardiovascular Cardiovascular exam: Present: RRR, +S1, +S2. Absent: diastolic murmur, gallop, rubs, systolic murmur - GI/Abdominal GI/Abdominal exam: Present: normal bowel sounds, soft, no peritoneal signs. Absent: distended, tenderness - Extremities Exam Extremities exam: Present: warm, radial pulses palpable and symmetrical. Absent : calf tenderness, cyanotic, pedal edema - Neurological Exam Neurological exam: Present: alert, CN II-XII intact, oriented X3, no focal deficits, strengths equal and symetr throughout. Absent: pronater drift, facial droop, speech deficit - Skin Skin exam: Present: dry, intact, warm - Patient Status Disposition: Home, Self-Care Condition: Fair Functional capacity at discharge: independent ambulation Overall status at discharge: patient is back to baseline - Discharge Instructions Follow Up With: Orthopedics [facility] [Provider Group] - 04/12/17 10:10 am (This appointment will be with Gurjit Merino. ) Leilani,Alonso Marmolejo MD [Primary Care Provider] - 04/16/17 4:30 pm - Diet and Activity Activity: resume usual activities as tolerated
== END 2017-04-10 17:14 | disposition home or self-care (01) | DRG 556 ==
LOC: 3BNU 11:58 → EMEROO 11:58 → 3BNU 17:21
PROVIDERS: ADMIT Registered Nurse; ATTEND Registered Nurse